=== PATIENT | female | born 1985 | race Caucasian/White ===

== ENCOUNTER 2016-12-10 11:13 | Emergency (ER) | payer OTHER ==
[~2016-12-10] VITALS: Wt 49.9 kg
[~2016-12-10 11:13] MED LIST: ALAVERT10 MG PO; ALKA SELTZER PL PO; AMOXICILLIN500 MG PO; AMOXIL500 MG PO; AUGMENTIN 875875 MG PO; BACTRIM DS 8001 TA1 PO; CELEXA10 MG PO; CLARITIN-D 24 H1 T24 PO; CLARITIN10 MG PO; CLEOCIN150 MG PO; CLINDAMYCIN HC300 MG PO; DAYPRO600 M1 PO; DIFLUCAN150 MG PO; FLEXERIL10 MG PO; FLONASE 0.05% 121 EA NAS; FLONASE ALLERG9.9 ML NAS; FLONASE0.05 MG/AC NS; HYDROCODONE BIT1 T11 PO; KEFLEX500 M1 PO; MOTRIN800 MG PO; NAPROSYN500 MG PO; NKHM; NKHM PO; NORCO 325 MG-51 TAB PO; PEN-VEE K500 MG PO; PENICILLIN VK500 MG PO; PHENERGAN W/ DE30 ML PO; PHENERGAN25 M1 PO; PREDNICOT10 MG PO; PREDNISONE10 MG PO; PREDNISONE20 M1 PO; PYRIDIUM200 MG PO; ROBITUSSIN DM 105 ML PO; TESSALON PERLE200 MG PO; ULTRAM50 MG PO; VIBRAMYCIN100 MG PO; VISTARIL25 MG PO; ZITHROMAX Z PA250 MG PO; ZYRTEC10 MG PO
[2016-12-10] MEDS ORDERED: AMOXICILLIN500 M2 PO (11:54)
[2016-12-10] MEDS ORDERED: PREDNISONE20 M1 PO (11:54)
[2016-12-10] MEDS ORDERED: DIFLUCAN150 MG PO (12:12)
== END 2016-12-10 12:09 | disposition home or self-care (01) ==
LOC: ED 11:13
DX: J01.90 Acute sinusitis, unspecified (principal); F17.200 Nicotine dependence, unspecified, uncomplicated; Z88.6 Allergy status to analgesic agent

== ENCOUNTER → 2017-01-08 | Outpatient (CLI) | payer OTHER ==
[~2017-01-08] MED LIST changes: +AMOXICILLIN500 M2 PO
== END | disposition home or self-care (01) ==
LOC: CARD 07:26
DX: I34.0 Nonrheumatic mitral (valve) insufficiency (principal); Q21.1 Atrial septal defect; I07.1 Rheumatic tricuspid insufficiency

== ENCOUNTER → 2017-01-23 | Outpatient (CLI) | payer OTHER ==
[2017-01-23 16:16] LABS: BASO # 0.1 10*3/uL (0.0-0.1); BASO % 1.4 % (0.0-1.0); EOS # 0.2 10*3/uL (0.0-0.4); EOS % 1.9 % (1.0-4.0); HEMATOCRIT 41.2 % (37.0-47.0); HEMOGLOBIN 13.5 g/dl (12.0-16.0); LYMPH # 2.8 10*3/uL (1.3-4.4); MEAN CELL VOLUME 94.3 fl (81.0-99.0); MEAN CORPUSCULAR HGB 30.9 pg (27.0-31.0); MEAN CORPUSCULAR HGB CONC 32.8 g/dl (33.0-37.0); MONO # 0.8 10*3/uL (0.1-1.0); MONO % 10.2 % (3.0-9.0); NEUT # 3.9 10*3/uL (2.3-7.9); NEUT % 50.2 % (47.0-73.0); PLATELET COUNT AUTOMATED 186 10*3/uL (130-400); RED BLOOD COUNT 4.37 10*6/uL (4.10-5.10); RED CELL DISTRI WIDTH 12.3 % (0-14.5); WHITE BLOOD COUNT 7.8 10*3/uL (4.8-10.8)
[2017-01-23 16:43] LABS: BUN 11 mg/dl (7-24); CARBON DIOXIDE 26 mmol/L (21-32); CHLORIDE 108 mmol/L (98-107); EST GLOM FILT AFRICAN AMERICAN > 60 ml/min; GLUCOSE 77 mg/dL (65-99); POTASSIUM 3.9 mmol/L (3.5-5.1); SODIUM 140 mmol/L (136-145)
== END | disposition home or self-care (01) ==
LOC: LAB 14:50
PROVIDERS: Internal Medicine Cardiovascular Disease
DX: Q21.1 Atrial septal defect (principal); R06.09 Other forms of dyspnea; R00.2 Palpitations

== ENCOUNTER → 2017-01-29 | Day surgery (SDC) | payer OTHER ==
[~2017-01-29] VITALS: Ht 162.5 cm; Wt 57.2 kg
[2017-01-29 12:56] VITALS: BP 121/58
[2017-01-29 13:35] VITALS: BP 139/75
[2017-01-29 13:50] VITALS: BP 125/73
[2017-01-29 14:05] VITALS: BP 121/65
[2017-01-29 14:14] VITALS: BP 122/60
== END | disposition home or self-care (01) ==
LOC: SDC 03:44
DX: Q21.1 Atrial septal defect (principal); R00.2 Palpitations; R06.09 Other forms of dyspnea; I10 Essential (primary) hypertension; F32.9 Major depressive disorder, single episode, unspecified; F41.9 Anxiety disorder, unspecified; Z80.9 Family history of malignant neoplasm, unspecified; F17.210 Nicotine dependence, cigarettes, uncomplicated

== ENCOUNTER → 2017-02-01 | Outpatient (CLI) | payer OTHER ==
--- NOTE | ~2017-02-01 | ST ---
[place], [place] EXERCISE STRESS TEST REPORT [id number] UN[facility] #: [id number] ROOM: DOCTOR: NOAH TAYLOR MD BIRTHDATE: [birth year] DOS: 02/01/2017 INDICATIONS: Exercise-induced dyspnea and palpitations. PROCEDURE: The patient walked on a full Misbah protocol stress test for 12 minutes and achieved a maximum heart rate of 169, which represented a 90% of her maximum predicted heart rate at a workload of 12.5 mets. She stopped for fatigue. During exercise, she did have a J-point depression with slowly upsloping ST segments in the inferior leads. This returned to baseline within a minute of recovery. She had very rare PVCs with exercise and no ventricular tachycardia or SVT. She did not have any chest pain and did not reproduce his symptoms with exercise. IMPRESSION: 1. Excellent exercise capacity without chest pain or significant arrhythmias. 2. Equivocal electrocardiographic changes that returned to baseline within a minute of recovery and are consistent with a normal stress test. 3. Low risk exercise stress test. NOAH TAYLOR MD CM:STRESS:EXERCISE STRESS TEST REPORT [id number] NOAH TAYLOR MD
== END | disposition home or self-care (01) ==
LOC: CARD 03:07
DX: R94.31 Abnormal electrocardiogram [ECG] [EKG] (principal); R06.02 Shortness of breath; R07.9 Chest pain, unspecified; R06.00 Dyspnea, unspecified; R00.2 Palpitations

== ENCOUNTER 2017-02-25 20:42 | Emergency (ER) | payer OTHER ==
[~2017-02-25] VITALS: Wt 57.2 kg
[2017-02-25] MEDS ORDERED: ANAPROX DS550 MG PO (20:52)
== END 2017-02-25 21:02 | disposition home or self-care (01) ==
LOC: ED 20:42
DX: L55.9 Sunburn, unspecified (principal); F17.200 Nicotine dependence, unspecified, uncomplicated; Z88.6 Allergy status to analgesic agent; Z88.8 Allergy status to other drugs, medicaments and biological substances

== ENCOUNTER 2017-04-15 18:32 | Emergency (ER) | payer OTHER ==
[~2017-04-15] VITALS: Wt 57.2 kg
[~2017-04-15 18:32] MED LIST changes: +ANAPROX DS550 MG PO
[2017-04-15 19:05] LABS: BASO # 0.1 10*3/uL (0.0-0.1); BASO % 1.1 % (0.0-1.0); EOS # 0.2 10*3/uL (0.0-0.4); EOS % 2.7 % (1.0-4.0); HEMATOCRIT 38.7 % (37.0-47.0); HEMOGLOBIN 12.9 g/dl (12.0-16.0); LYMPH # 4.1 10*3/uL (1.3-4.4); LYMPH % 46.5 % (27.0-41.0); MEAN CELL VOLUME 95.3 fl (81.0-99.0); MEAN CORPUSCULAR HGB 31.8 pg (27.0-31.0); MEAN CORPUSCULAR HGB CONC 33.3 g/dl (33.0-37.0); MEAN PLATELET VOLUME 11.3 fl (9.6-12.3); MONO # 0.7 10*3/uL (0.1-1.0); MONO % 8.1 % (3.0-9.0); NEUT # 3.7 10*3/uL (2.3-7.9); NEUT % 41.5 % (47.0-73.0); PLATELET COUNT AUTOMATED 189 10*3/uL (130-400); RED BLOOD COUNT 4.06 10*6/uL (4.10-5.10); RED CELL DISTRI WIDTH 13.2 % (0-14.5); WHITE BLOOD COUNT 8.8 10*3/uL (4.8-10.8)
[2017-04-15 19:20] LABS: ALBUMIN 3.9 gm/dl (3.1-4.5); ALKALINE PHOSPHATASE 32 U/L (45-117); BILIRUBIN, TOTAL 0.2 mg/dl (0.2-1.0); BUN 11 mg/dl (7-24); CARBON DIOXIDE 25 mmol/L (21-32); CHLORIDE 110 mmol/L (98-107); EST GLOM FILT AFRICAN AMERICAN > 60 ml/min; GLUCOSE 86 mg/dL (65-99); POTASSIUM 4.3 mmol/L (3.5-5.1); SGOT/AST 11 IU/L (3-35); SGPT/ALT 13 U/L (12-78); SODIUM 141 mmol/L (136-145); TOTAL PROTEIN 7.2 gm/dL (6.4-8.2)
[2017-04-15 20:24] LABS: BILIRUBIN NEGATIVE (NEGATIVE); BLOOD NEGATIVE (NEGATIVE); CLARITY CLEAR (CLEAR); COLOR YELLOW (YELLOW); GLUCOSE NEGATIVE (NEGATIVE); KETONE NEGATIVE (NEGATIVE); LEUKO ESTERASE NEGATIVE (NEGATIVE); NITRITE NEGATIVE (NEGATIVE); PROTEIN NEGATIVE (NEGATIVE); SPECIFIC GRAVITY <= 1.005 (1.005-1.030); UROBILINOGEN 0.2 E.U./dl (0.2-1.0)
[2017-04-15 20:42] LABS: BACTERIA TRACE; URINE REFLEX COMMENT NO (NO); WBC 0-2 wbc/hpf (0-5)
== END 2017-04-15 21:49 | disposition home or self-care (01) ==
LOC: ED 18:32
PROVIDERS: Physician Assistant
DX: K62.5 Hemorrhage of anus and rectum (principal); R10.9 Unspecified abdominal pain; F17.200 Nicotine dependence, unspecified, uncomplicated; Z88.6 Allergy status to analgesic agent; Z91.018 Allergy to other foods

== ENCOUNTER → 2017-05-30 | Day surgery (SDC) | payer OTHER ==
[~2017-05-30] VITALS: Ht 162.5 cm; Wt 56.2 kg
[~2017-05-30] MED LIST changes: +OMEPRAZOLE20 M2 PO
--- NOTE | ~2017-05-30 | O ---
[place], [place] OPERATIVE NOTE [id number] UNIT #: [id number] ROOM: DOCTOR: PHILIPP ORTIZ,AARON BIRTHDATE: [birth year] DOS: 05/30/2017 GASTROENDOSCOPIC REPORT. INDICATIONS: The patient has presented with chief complaint of epigastric distress, dyspepsia, undergoing investigation. PROCEDURE: Today's procedure part of investigation is panendoscopy. PREMEDICATION: Versed and Diprivan. SCOPE: Olympus forward-viewing gastroscope Q10 video. REPORT: After putting the patient in the left lateral position and after application of lubricant to the scope, the scope was introduced. Thereafter, under direct visualization, I advanced through the length of esophagus without difficulty. Gastric pouch was entered. Gastritis, gastric erosions seen. Duodenal bulb, second and third part within normal limits. Antral biopsy obtained. The patient extubated, tolerated the procedure well. IMPRESSION: Gastritis, gastric erosions. PLAN AND DISCUSSION: Omeprazole 20 mg 1 every day will be added and hemorrhoid Preparation-H for suppositories for p.r.n. use for rectal agitation. Thank you very much again. AARON SEGAL MD CM:OPRECORD:OPERATIVE NOTE 1250 1403 AARON SEGAL MD 05/30/17 1403 interface
--- NOTE | ~2017-05-30 | O ---
[place], [place] OPERATIVE NOTE NAME: BRANDON CHUNG UNIT #: [id number] ROOM: DOCTOR: AARON SEGAL MD BIRTHDATE: [birth year] DOS: 05/30/2017 GASTROENDOSCOPIC REPORT. HISTORY OF PRESENT ILLNESS: This 31-year-old patient who has presented with chief complaint of rectal bleeding, epigastric distress, dyspepsia. ALLERGIES: IVP and CODEINE. FAMILY HISTORY: Noncontributory. PAST SURGICAL HISTORY: Exploratory laparotomy. SOCIAL HISTORY: Smoker, nonalcohol consumer. PROCEDURE: Today's procedure part of investigation is colonoscopy and panendoscopy. PREMEDICATION: Versed and Diprivan. SCOPE: Olympus forward-viewing colonoscope 10L video. REPORT: After putting the patient in left lateral position and application of lubricant to rectal pouch and digital examination, scope was introduced. Thereafter, under direct visualization, advanced through the length of colon without difficulty. Base of the cecum explored, appendiceal orifice identified. Ileocecal valve was defined. Air was suctioned out. The patient was extubated, tolerated the procedure well. IMPRESSION: Normal colonoscopic examination. Some mild irritation around the rectum was noticed. This was manageable with Preparation-H suppositories p.r.n. use. Furthermore, we are going to proceed with panendoscopic assessment for history of dyspepsia. [place], [place] OPERATIVE NOTE NAME: BRANDON CHUNG [place] UNIT #: [id number] ROOM: DOCTOR: AARON SEGAL MD BIRTHDATE: [birth year] AARON SEGAL MD CM:OPRECORD:OPERATIVE NOTE 1250 1400 AARON SEGAL MD 05/30/17 1400 interface
[2017-05-30 12:06] VITALS: BP 110/65
[2017-05-30 12:57] VITALS: BP 113/62
[2017-05-30 12:59] VITALS: BP 104/68
[2017-05-30 13:15] VITALS: BP 109/66
== END | disposition home or self-care (01) ==
LOC: SDC 05-25 11:00
DX: K62.89 Other specified diseases of anus and rectum (principal); K29.50 Unspecified chronic gastritis without bleeding; F32.9 Major depressive disorder, single episode, unspecified; F41.9 Anxiety disorder, unspecified; I10 Essential (primary) hypertension; Z98.890 Other specified postprocedural states; F17.210 Nicotine dependence, cigarettes, uncomplicated; Z88.8 Allergy status to other drugs, medicaments and biological substances; Z80.9 Family history of malignant neoplasm, unspecified

== ENCOUNTER 2017-08-28 22:44 | Emergency (ER) | payer OTHER ==
[~2017-08-28] VITALS: Ht 162.5 cm; Wt 62.1 kg
[2017-08-28] MEDS ORDERED: CEPHALEXIN500 M1 PO (23:40)
[2017-08-28] MEDS ORDERED: NAPROSYN500 MG PO (23:40)
== END 2017-08-28 23:57 | disposition home or self-care (01) ==
LOC: ED 22:44
DX: L02.31 Cutaneous abscess of buttock (principal); L02.214 Cutaneous abscess of groin; F17.200 Nicotine dependence, unspecified, uncomplicated; Z79.899 Other long term (current) drug therapy; Z91.040 Latex allergy status; Z88.5 Allergy status to narcotic agent; Z88.8 Allergy status to other drugs, medicaments and biological substances

== ENCOUNTER → 2017-10-19 | Day surgery (SDC) | payer OTHER ==
[~2017-10-19] VITALS: Ht 137.1 cm; Wt 60.8 kg
[~2017-10-19] MED LIST changes: +CEPHALEXIN500 M1 PO
--- NOTE | ~2017-10-19 | PROC NOTE ---
[place], [place] PROCEDURE NOTE NAME: BRANDON CHUNG [facility] #: [id number] UNIT #: [id number] ROOM: DOCTOR: NATHAN GOULD MD BIRTHDATE: [birth year] DOS: 10/19/2017 22PREOPERATIVE DIAGNOSIS: Right neck cyst. POSTOPERATIVE DIAGNOSIS: Right neck cyst. PROCEDURE: Excision of right neck cyst. SURGEON: Nathan Gould MD DIRECTOR OF TEACHING AND LEARNING: HALIE. ANESTHESIA: Local (6 mL of 1% plain lidocaine). INDICATIONS: This is a 32-year-old lady with a longstanding history of right neck skin cyst who is here for the above-mentioned procedure. The procedure and its complications were explained to the patient in detail preoperatively. Complications that were discussed included but were not limited to, bleeding, infection, and prolonged pain. She agreed to proceed. DESCRIPTION OF PROCEDURE: After identifying the patient, the patient was brought to the operating suite and placed in the supine position. After time-out procedure was called, the parts were painted and draped in the usual sterile fashion and an elliptical incision was marked with the help of a marking pen around the cyst. Local anesthesia was infiltrated around this area and with the help of a knife, the skin incision was made around the marked site. It was deepened in layers and the entire cyst was then excised with the help of the knife and electrocautery. It was sent for histopathological diagnosis. Hemostasis was achieved. Saline was used for irrigation and thereafter, the skin edges were approximated with the help of interrupted 4-0 Vicryl in a subcuticular fashion. A dressing was placed. The patient tolerated the procedure well. There were no complications. Dr. Nathan Gould, the attending surgeon, was present throughout the operating case. Nathan Gould MD CM:PROCNOTE:PROCEDURE NOTE NATHAN GOULD MD
[2017-10-19 07:40] VITALS: BP 117/56
[2017-10-19 07:50] VITALS: BP 132/76
[2017-10-19 08:10] VITALS: BP 113/73
[2017-10-19 08:12] VITALS: BP 107/72
[2017-10-19 08:14] VITALS: BP 107/72
== END | disposition home or self-care (01) ==
LOC: SDC 10-18 09:30
DX: L72.0 Epidermal cyst (principal); K21.9 Gastro-esophageal reflux disease without esophagitis; I10 Essential (primary) hypertension; Z98.890 Other specified postprocedural states; Z80.9 Family history of malignant neoplasm, unspecified; Z88.5 Allergy status to narcotic agent; Z88.8 Allergy status to other drugs, medicaments and biological substances; F17.210 Nicotine dependence, cigarettes, uncomplicated

== ENCOUNTER 2017-11-02 00:41 | Emergency (ER) | payer OTHER ==
[~2017-11-02] VITALS: Ht 162.5 cm; Wt 60.8 kg
[2017-11-02] MEDS ORDERED: SEPTDS PO (01:01)
[2017-11-02] MEDS ORDERED: DOXYCYCLINE HY100 M3 PO (01:01)
[2017-11-02] MEDS ORDERED: KETOROLAC10 MG PO (01:01)
[2017-11-02] MEDS ORDERED: DIFLUCAN150 MG PO (01:12)
== END 2017-11-02 01:36 | disposition home or self-care (01) ==
LOC: ED 00:41
DX: L73.2 Hidradenitis suppurativa (principal); F17.200 Nicotine dependence, unspecified, uncomplicated; Z88.5 Allergy status to narcotic agent; Z88.8 Allergy status to other drugs, medicaments and biological substances

== ENCOUNTER 2017-12-08 23:29 | Emergency (ER) | payer OTHER ==
[~2017-12-08] VITALS: Ht 162.5 cm; Wt 59.0 kg
[~2017-12-08 23:29] MED LIST changes: +DOXYCYCLINE HY100 M3 PO; +KETOROLAC10 MG PO; +SEPTDS PO
[2017-12-08] MEDS ORDERED: DOXYCYCLINE HY100 M3 PO (23:48)
[2017-12-08] MEDS ORDERED: KETOROLAC10 MG PO (23:48)
[2017-12-08] MEDS ORDERED: SEPTDS PO (23:48)
[2017-12-09] MEDS ORDERED: DIFLUCAN150 MG PO (00:54)
== END 2017-12-09 01:30 | disposition home or self-care (01) ==
LOC: ED 23:29
DX: L02.412 Cutaneous abscess of left axilla (principal); Z79.899 Other long term (current) drug therapy; Z91.041 Radiographic dye allergy status; Z88.6 Allergy status to analgesic agent; Z91.02 Food additives allergy status

== ENCOUNTER → 2019-04-02 | Outpatient (CLI) | payer OTHER | END | disposition home or self-care (01) | LOC: RAD 11:19 | DX: S14.0XXD Concussion and edema of cervical spinal cord, subsequent encounter (principal); X58.XXXD Exposure to other specified factors, subsequent encounter ==

== ENCOUNTER 2019-09-06 07:21 | Emergency (ER) | payer OTHER ==
[~2019-09-06] VITALS: Ht 162.5 cm; Wt 62.6 kg
[2019-09-06] MEDS ORDERED: NAPROSYN500 MG PO (08:48)
[2019-09-06] MEDS ORDERED: LEVOFLOXACIN500 MG PO (08:48)
== END 2019-09-06 08:54 | disposition home or self-care (01) ==
LOC: ED 07:21
DX: J32.9 Chronic sinusitis, unspecified (principal); K21.9 Gastro-esophageal reflux disease without esophagitis; I10 Essential (primary) hypertension; Z91.041 Radiographic dye allergy status; Z88.5 Allergy status to narcotic agent

== ENCOUNTER → 2020-02-23 | Outpatient (CLI) | payer OTHER ==
[~2020-02-23] MED LIST changes: +LEVOFLOXACIN500 MG PO
== END | disposition home or self-care (01) ==
LOC: MRI 10:00
DX: S14.0XXA Concussion and edema of cervical spinal cord, initial encounter (principal); M50.222 Other cervical disc displacement at C5-C6 level; M48.02 Spinal stenosis, cervical region; X58.XXXA Exposure to other specified factors, initial encounter; Y93.89 Activity, other specified; Y92.89 Other specified places as the place of occurrence of the external cause; Y99.8 Other external cause status

== ENCOUNTER → 2020-07-31 | Outpatient (CLI) | payer OTHER | END | disposition home or self-care (01) | LOC: COVID19 10:28 | PROVIDERS: ATTEND Internal Medicine | DX: Z20.828 Contact with and (suspected) exposure to other viral communicable diseases (principal) ==

== ENCOUNTER 2020-10-08 22:35 | Emergency (ER) | payer OTHER ==
[~2020-10-08] VITALS: Ht 162.5 cm; Wt 64.4 kg
[2020-10-08] MEDS ORDERED: CLINDAMYCIN HC300 MG PO (23:47)
[2020-10-08] MEDS ORDERED: DIFLUCAN150 MG PO (23:47)
== END 2020-10-08 23:48 | disposition home or self-care (01) ==
LOC: ED 22:35
DX: K04.7 Periapical abscess without sinus (principal); B37.9 Candidiasis, unspecified; K21.9 Gastro-esophageal reflux disease without esophagitis; I10 Essential (primary) hypertension; Z91.041 Radiographic dye allergy status; Z88.5 Allergy status to narcotic agent; Z91.018 Allergy to other foods; Z79.2 Long term (current) use of antibiotics; Z79.899 Other long term (current) drug therapy

== ENCOUNTER → 2020-10-18 | Outpatient (CLI) | payer OTHER | END | disposition home or self-care (01) | LOC: COVID19 16:10 | PROVIDERS: ATTEND Student in an Organized Health Care Education/Training Program | DX: Z20.822 Contact with and (suspected) exposure to COVID-19 (principal) ==

== ENCOUNTER → 2021-06-21 | Outpatient (CLI) | payer OTHER | END | disposition home or self-care (01) | LOC: COVID19 16:26 | PROVIDERS: ATTEND Student in an Organized Health Care Education/Training Program | DX: Z11.52 Encounter for screening for COVID-19 (principal) ==

== ENCOUNTER 2023-09-05 06:20 | Emergency (ER) | payer OTHER ==
[~2023-09-05] VITALS: Ht 162.5 cm; Wt 68.0 kg
[2023-09-05 08:28] LABS: BASO # 0.1 10*3/uL (0.0-0.1); BASO % 0.6 % (0.0-1.0); EOS # 0.1 10*3/uL (0.0-0.4); EOS % 1.1 % (1.0-4.0); HEMATOCRIT 41.9 % (37.0-47.0); LYMPH # 2.3 10*3/uL (1.3-4.4); LYMPH % 17.7 % (27.0-41.0); MEAN CORPUSCULAR HGB 31.3 pg (27.0-31.0); MEAN CORPUSCULAR HGB CONC 32.9 g/dl (33.0-37.0); MONO # 1.2 10*3/uL (0.1-1.0); MONO % 9.7 % (3.0-9.0); NEUT % 70.5 % (47.0-73.0); PLATELET COUNT AUTOMATED 260 10*3/uL (130-400); RED BLOOD COUNT 4.41 10*6/uL (4.10-5.10); RED CELL DISTRI WIDTH 13.2 % (0-14.5); WHITE BLOOD COUNT 12.8 10*3/uL (4.8-10.8)
[2023-09-05 08:35] LABS: ACT PARTIAL THROMBO TIME 29.1 SECONDS (20.0-32.1)
[2023-09-05 08:42] LABS: ALKALINE PHOSPHATASE 44 U/L (46-116); CHLORIDE 107 mmol/L (98-107); LIPASE 34 U/L (12-53); POTASSIUM 3.8 mmol/L (3.4-5.1); SGPT/ALT 11 U/L (5-49); TOTAL PROTEIN 7.3 gm/dL (6.0-8.0)
[2023-09-05 08:45] LABS: BETA-HCG, QUANT < 3.0 mIU/mL (3-10); BUN < 5 mg/dl (9-23)
== END 2023-09-05 11:32 | disposition left against medical advice (07) ==
LOC: ED 06:20
PROVIDERS: Emergency Medicine
DX: B27.90 Infectious mononucleosis, unspecified without complication (principal); K21.9 Gastro-esophageal reflux disease without esophagitis; R10.2 Pelvic and perineal pain; Z91.041 Radiographic dye allergy status; Z88.5 Allergy status to narcotic agent; Z88.8 Allergy status to other drugs, medicaments and biological substances; Z98.890 Other specified postprocedural states; Z87.891 Personal history of nicotine dependence; Z20.822 Contact with and (suspected) exposure to COVID-19

== ENCOUNTER → 2024-04-01 | Outpatient (CLI) | payer OTHER | END | disposition home or self-care (01) | LOC: MAMMO 14:51 | PROVIDERS: ATTEND Family Medicine | DX: Z12.31 Encounter for screening mammogram for malignant neoplasm of breast (principal); R92.30 Dense breasts, unspecified ==

== ENCOUNTER → 2024-05-01 | Outpatient (CLI) | payer OTHER | END | disposition home or self-care (01) | LOC: US 04-10 08:30 | PROVIDERS: ATTEND Student in an Organized Health Care Education/Training Program | DX: N60.02 Solitary cyst of left breast (principal); N63.21 Unspecified lump in the left breast, upper outer quadrant ==